=== PATIENT | male | born 1965 | race Caucasian/White ===

== ENCOUNTER 2019-08-07 15:25 | Outpatient (RCR) | payer MEDICARE, SELFPAY | END 2019-08-21 23:59 | disposition home or self-care (01) | LOC: SPT 15:25 | PROVIDERS: Family Provider Family Medicine; PCP Family Medicine; Referring Provider Family Medicine; Visit Provider Family Medicine | DX: R27.9 Unspecified lack of coordination (principal) | CPT/HCPCS: 97110; 97161 ==

== ENCOUNTER 2019-11-13 17:45 | Emergency (ER) | payer MEDICARE, SELFPAY ==
[2019-11-13 17:52] VITALS: BP 147/79; PULSE 94; RESP 18; TEMP 36.6; O2SAT 95; BMI 37.6
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
[2019-11-13] MEDS: naproxen 500 mg Tablet PO (18:44)
[2019-11-13 18:47] VITALS: BP 125/78; PULSE 81; RESP 16; O2SAT 93
== END 2019-11-13 18:55 | disposition home or self-care (01) ==
PROVIDERS: Emergency Provider Emergency Medicine; PCP Family Medicine
DX: S63.502A Unspecified sprain of left wrist, initial encounter (principal); S66.912A Strain of unspecified muscle, fascia and tendon at wrist and hand level, left hand, initial encounter; V19.9XXA Pedal cyclist (driver) (passenger) injured in unspecified traffic accident, initial encounter
CPT/HCPCS: 12345; 73110; 99282; 99283

== ENCOUNTER 2019-11-23 22:32 | Observation (INO) | payer MEDICARE, SELFPAY ==
[2019-11-23 23:00] VITALS: PULSE 90; RESP 20; TEMP 36.7; O2SAT 95; BMI 37.6
[2019-11-24] VITALS (8 sets, daily range): BP systolic 106–171; BP diastolic 73–113; PULSE 69–81; RESP 16–20; TEMP 36.5–36.7; O2SAT 96–99
--- NOTE | 2019-11-24 01:39 | ED_ITS ---
Documented by User: TRIPP Underwood 11/24/19 03:56 HPI - Abdominal Pain General: Chief Complaint: Airway/Esophagus Foreign Body Stated Complaint: food stuck in chest Time Seen by Provider: 11/24/19 01:16 Source: patient Mode of arrival: ambulatory Limitations: no limitations History of Present Illness: HPI narrative: Patient comes in with foreign body sensation in his esophagus. Patient states he was eating ribs at around 5:00 this afternoon and swallowed some but felt it did not go down all the way. Patient reports since then he has every now again has to spit out phlegm. But is unable to swallow. Patient appears well. Patient appears in no acute distress. Patient does have a history of stroke with right-sided deficit. Associated Symptoms: Reports other (Foreign body in esophagus.) Review of Systems General: Reports: 10 or more systems reviewed and unremarkable except in HPI and below GI: Reports: other (Foreign body in esophagus.) PFSH ED PFSH: Medical History Anxiety History of CVA (cerebrovascular accident) Right hemiparesis Hypertension Surgical History History of appendectomy History of arthroscopy of left knee History of facial surgery Nerve surgery on the right side to help me move food out of the right side of my mouth after my stroke History of removal of Port-a-Cath Placement/removal Schwannoma of cranial nerve Craniotomy Status post cholecystectomy Status post insertion of percutaneous endoscopic gastrostomy (PEG) tube /Removal Family History Other Cancer Diabetes Social History Smoking and tobacco status: never smoked Household members: spouse Marital status: Current occupational status: unemployed Physical Exam Const: COMMON NORMALS: no acute distress and patient oriented x3 GENERAL APPEARANCE: cooperative HENMT: COMMON NORMALS: normocephalic and Normal external nose present HEAD & SCALP: normal to inspection and normocephalic NOSE: Normal external nose present MOUTH: Normal oral and palatal mucosa present THROAT: posterior oropharynx normal Eye: GENERAL EYE: appearance normal, both eyes and all related structures Neck/C-Spine: COMMON NORMALS: full ROM Lymph: LYMPHATIC: no lymphadenopathy noted Chest: COMMONS NORMALS: normal inspection of the chest Resp: COMMON NORMALS: normal respiratory effort EFFORT & INSPECTION: Yes able to speak in complete sentences Cardio: COMMON NORMALS: regular rate and regular rhythm RATE: regular rate RHYTHM: regular rhythm GI: COMMON NORMALS: non-tender : COMMON NORMALS: Yes no CVA tenderness BLADDER/KIDNEY EXAM: Yes no CVA tenderness Back/Pelvis: COMMON NORMALS: no CVA tenderness and thoracic and lumbar spine normal to inspection Extremity: COMMON NORMALS: normal to inspection Neuro: COMMON NORMALS: patient oriented x3 and moves all extremities Psych: COMMON NORMALS: mental status grossly normal and cooperative Skin: COMMON NORMALS: no rashes or lesions noted GENERAL SKIN EXAM: no rashes or lesions noted Course ED course: 5, attempted use of nitro sublingual and glucagon without relief of obstruction to esophagus. Chest x-ray noted obstruction in the esophagus as highlighted by barium. Patient appears well. Patient appears no acute distress. Reviewed with Dr. Pedro who will talk with Dr. Magana regarding further treatment. Dr. Pedro assumed care of patient. Wjw Vital Signs: Vital signs: Vital Signs Temperature 97.7 F 11/24/19 09:40 Pulse Rate 81 11/24/19 09:40 Respiratory Rate 16 11/24/19 09:40 Blood Pressure 158/105 11/24/19 09:40 Pulse Oximetry 98 11/24/19 09:40 MDM - Abdominal Pain MDM Narrative: Medical decision making narrative: Patient came in today for complaints of inability to swallow after eating some baby back ribs. Patient appears well. Patient appears in no acute distress. Lungs are clear to auscultation. Skin is warm and dry. Differential diagnosis includes esophageal stricture, esophageal obstruction, aspiration. Chest x-ray noted a obstruction in the esophagus as highlighted by barium. We attempted relaxation of the esophagus with nitro and glucagon without any relief. Discussed with Dr. Pedro who agreed to contact Dr. Magana for surgical intervention. Patient needs surgical intervention to remove obstruction from esophagus. Lab Data: Labs: Lab Results 11/24/19 11/24/19 Range/Units 04:14 04:14 WBC 8.4 (4.0-10.0) 10^3/ uL RBC 4.78 (4.1-5.3) 10^6/u L Hgb 13.5 (11.7-16.6) g/dL Hct 40.3 L (42.0-52.0) % MCV 84.3 (80-94) fL MCH 28.2 (28.0-34.0) pg MCHC 33.5 (30.0-36.0) g/dL RDW 12.8 (12.1-15.1) % Plt Count 206 (130-400) 10^3/c mm MPV 11.6 H (7.4-10.4) fL Neut % (Auto) 62.4 % Lymph % (Auto) 26.2 % [place] % (Auto) 5.6 % Eos % (Auto) 5.1 % Baso % (Auto) 0.6 % Neut # (Auto) 5.2 (1.8-7.7) 10^3/u L Lymph # (Auto) 2.2 (0.8-4.8) 10^3/u L [place] # (Auto) 0.5 (0.2-0.9) 10^3/u L Eos # (Auto) 0.4 (0.0-0.8) 10^3/u L Baso # (Auto) 0.1 (0.0-0.1) 10^3/u L Nucleated RBC % (a uto) 0 % Nucleated RBCs # 0.0 /100WBC Sodium 137 (136-145) mmol/L Potassium 3.6 (3.5-5.1) mmol/L Chloride 99 (98-107) mmol/L Carbon Dioxide 25 (22-29) mmol/L Anion Gap 16.6 (5-19) BUN 13 (6-20) mg/dL Creatinine 1.0 (0.7-1.2) mg/dL GFR Calculation 78.2 L (90-130) mL/min Glucose 119 H (65-115) mg/dL Calculated Osmolal ity 281 L (285-295) mOsm/k g Calcium 9.5 (8.5-10.5) mg/dL Total Bilirubin 0.9 (0.15-1.2) mg/dL AST 17 (0-40) U/L ALT 23 (0-41) U/L Alkaline Phosphata se 67 (40-130) IU/L Total Protein 7.7 (6.6-8.7) g/dL Albumin 4.9 (3.5-5.2) g/dL Globulin 2.8 (1.3-4.6) g/dL Discharge Plan Discharge Patient Disposition: Admitted As Inpatient Admit Provider: Alonso Magana Condition: Stable Discharge Orders: Discharge Order (Routine); Ordered 11/24/19 Ordered By: Alonso Magana Referrals: Marsha Grover MD [Primary Care Provider] - (Need a 1 week follow up appointment from hospital with Marsha. Need this call to his home. Faxed information to clinic) Discharge Diet: Advance as tolerated Discharge Activity: Increase activity as tolerated Patient Instructions: Esophageal Spasm (GEN) Additional Instructions: Follow-up with your primary care physician as needed. Discharge Date/Time: 11/24/19 06:53 Coding Level of Care Code ED Dinkey Motor Operator for Chg Fwd Exam Comprehensive Documented by User: Jose Armando Pedro DO 11/25/19 06:07 HPI - Abdominal Pain General: Chief Complaint: Airway/Esophagus Foreign Body Stated Complaint: food stuck in chest Time Seen by Provider: 11/24/19 01:16 [facility] ED PFSH: Medical History Anxiety History of CVA (cerebrovascular accident) Right hemiparesis Hypertension Surgical History History of appendectomy History of arthroscopy of left knee History of facial surgery Nerve surgery on the right side to help me move food out of the right side of my mouth after my stroke History of removal of Port-a-Cath Placement/removal Schwannoma of cranial nerve Craniotomy Status post cholecystectomy Status post insertion of percutaneous endoscopic gastrostomy (PEG) tube /Removal Family History Other Cancer Diabetes Social History Smoking and tobacco status: never smoked Household members: spouse Marital status: Current occupational status: unemployed Course Consultations: Consultation #1: miriam Vital Signs: Vital signs: Vital Signs Temperature 97.7 F 11/24/19 09:40 Pulse Rate 81 11/24/19 09:40 Respiratory Rate 16 11/24/19 09:40 Blood Pressure 158/105 11/24/19 09:40 Pulse Oximetry 98 11/24/19 09:40 MDM - Abdominal Pain MDM Narrative: Medical decision making narrative: This patient was originally seen by TRIPP Nichols. I have seen the patient as well. He has a foreign body sensation in his esophagus. On a modified barium swallow study, and obstruction is present. Nitroglycerin has been tried as well as glucagon. This was unsuccessful. We contacted surgery, and they are willing to accept as an outpatient in a bed to take to the GI Lab later this morning for EGD. Lab Data: Labs: Lab Results 11/24/19 11/24/19 Range/Units 04:14 04:14 WBC 8.4 (4.0-10.0) 10^3/ uL RBC 4.78 (4.1-5.3) 10^6/u L Hgb 13.5 (11.7-16.6) g/dL Hct 40.3 L (42.0-52.0) % MCV 84.3 (80-94) fL MCH 28.2 (28.0-34.0) pg MCHC 33.5 (30.0-36.0) g/dL RDW 12.8 (12.1-15.1) % Plt Count 206 (130-400) 10^3/c mm MPV 11.6 H (7.4-10.4) fL Neut % (Auto) 62.4 % Lymph % (Auto) 26.2 % [place] % (Auto) 5.6 % Eos % (Auto) 5.1 % Baso % (Auto) 0.6 % Neut # (Auto) 5.2 (1.8-7.7) 10^3/u L Lymph # (Auto) 2.2 (0.8-4.8) 10^3/u L [place] # (Auto) 0.5 (0.2-0.9) 10^3/u L Eos # (Auto) 0.4 (0.0-0.8) 10^3/u L Baso # (Auto) 0.1 (0.0-0.1) 10^3/u L Nucleated RBC % (a uto) 0 % Nucleated RBCs # 0.0 /100WBC Sodium 137 (136-145) mmol/L Potassium 3.6 (3.5-5.1) mmol/L Chloride 99 (98-107) mmol/L Carbon Dioxide 25 (22-29) mmol/L Anion Gap 16.6 (5-19) BUN 13 (6-20) mg/dL Creatinine 1.0 (0.7-1.2) mg/dL GFR Calculation 78.2 L (90-130) mL/min Glucose 119 H (65-115) mg/dL Calculated Osmolal ity 281 L (285-295) mOsm/k g Calcium 9.5 (8.5-10.5) mg/dL Total Bilirubin 0.9 (0.15-1.2) mg/dL AST 17 (0-40) U/L ALT 23 (0-41) U/L Alkaline Phosphata se 67 (40-130) IU/L Total Protein 7.7 (6.6-8.7) g/dL Albumin 4.9 (3.5-5.2) g/dL Globulin 2.8 (1.3-4.6) g/dL Discharge Plan Discharge Patient Disposition: Admitted As Inpatient Admit Provider: Alonso Magana Condition: Stable Discharge Orders: Discharge Order (Routine); Ordered 11/24/19 Ordered By: Alonso Magana Referrals: Marsha Grover MD [Primary Care Provider] - (Need a 1 week follow up appointment from hospital with Marsha. Need this call to his home. Faxed information to clinic) Discharge Diet: Advance as tolerated Discharge Activity: Increase activity as tolerated Patient Instructions: Esophageal Spasm (GEN) Additional Instructions: Follow-up with your primary care physician as needed. Discharge Date/Time: 11/24/19 06:53 Coding Level of Care Code ED Dinkey Motor Operator for Chg Fwd Exam Comprehensive
--- NOTE | 2019-11-24 01:40 | XRR_ITS ---
PROCEDURE INFORMATION: Exam: XR Chest, 2 Views Exam date and time: 11/24/2019 3:14 AM Age: 54 years old Clinical indication: Other: Food bolus in chest/esphagus TECHNIQUE: Imaging protocol: XR of the chest Views: 2 views. COMPARISON: CR Chest 1 [place] [id number] 11/13/2017 1:17 PM FINDINGS: Lungs: Lungs are clear. Pleural space: There is no pleural effusion or pneumothorax. Heart/Mediastinum: The upper esophagus is dilated and contrast filled. There is an irregular filling defect at the distal margin of the contrast column. Cardiomediastinal contours are unremarkable. Bones/joints: Bones are unremarkable. XR/XR chest 2V* [id number] IMPRESSION: Mid esophageal obstruction. Findings may be due to food bolus, neoplastic mass, and or esophageal stricture.
[2019-11-24] MEDS: nitroglycerin 0.4 mg sublingual Tablet SUBLINGUAL (01:54)
[2019-11-24] MEDS: barium sulfate 450 mL Oral Susp PO (03:23)
--- NOTE | 2019-11-24 03:54 | ECG_ITS ---
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 Measurements Intervals Spring Rate: 72 P: 33 OR: 186 QRS: 23 QRSD: 108 T: 6 QT: 374 QTc: 410 Interpretive Statements SINUS RHYTHM Compared to ECG 11/16/2014 16:46:55 Myocardial infarct finding no longer present Electronically Signed On 11-24-2019 13:53:28 CDT by Chava Bernal M.D. [id number]
[2019-11-24 06:07] LABS: Basophils # 0.1 10^3/uL (0.0-0.1); Basophils % 0.6 %; Eosinophils # 0.4 10^3/uL (0.0-0.8); Eosinophils % 5.1 %; Hematocrit 40.3 % (42.0-52.0); Hemoglobin 13.5 g/dL (11.7-16.6); Lymphocytes # 2.2 10^3/uL (0.8-4.8); Lymphocytes % 26.2 %; Mean Corpuscular HGB Conc 33.5 g/dL (30.0-36.0); Mean Corpuscular Hemoglobin 28.2 pg (28.0-34.0); Mean Corpuscular Volume 84.3 fL (80-94); Mean Platelet Volume 11.6 fL (7.4-10.4); Monocytes # 0.5 10^3/uL (0.2-0.9); Monocytes % 5.6 %; Neutrophils # 5.2 10^3/uL (1.8-7.7); Neutrophils % 62.4 %; Nucleated Red Blood Cells % 0 %; Platelet Count 206 10^3/cmm (130-400); Red Blood Count 4.78 10^6/uL (4.1-5.3); Red Cell Distribution Width 12.8 % (12.1-15.1); White Blood Count 8.4 10^3/uL (4.0-10.0)
[2019-11-24 06:25] LABS: Alanine Aminotransferase 23 U/L (0-41); Albumin Level 4.9 g/dL (3.5-5.2); Alkaline Phosphatase 67 IU/L (40-130); Anion Gap 16.6 (5-19); Aspartate Amino Transferase 17 U/L (0-40); Blood Urea Nitrogen 13 mg/dL (6-20); Calcium 9.5 mg/dL (8.5-10.5); Carbon Dioxide 25 mmol/L (22-29); Chloride 99 mmol/L (98-107); Globulin 2.8 g/dL (1.3-4.6); Glomerular Filtration Rate 78.2 mL/min (90-130); Glucose 119 mg/dL (65-115); Osmolality Calculated 281 mOsm/kg (285-295); Potassium 3.6 mmol/L (3.5-5.1); Sodium 137 mmol/L (136-145); Total Bilirubin 0.9 mg/dL (0.15-1.2); Total Protein 7.7 g/dL (6.6-8.7)
--- NOTE | 2019-11-24 07:20 | PM.HP ---
Providers/Chief Complaint Admitting Physician: Alonso Magana MD Primary Care Provider: Marsha Grover MD Chief Complaint: food stuck in chest History of Present Illness Walter Cherry is a 54 year old male who was eating some ribs yesterday around 5 PM. He says that he felt like one bite of the meat did not go down all the way. He has been able to handle secretions for the most part, but came into the emergency department and no medical modalities resulted in improvement. He was placed in an outpatient bed with plans for endoscopy. The patient says he has been asleep for a couple of hours and it is difficult for him to tell if the meat is still in his esophagus or not. He certainly is in no distress. This has never happened to him before, although he has had a stroke in the past and feels like sometimes he has to swallow hard to get food down. The patient has no ongoing history of GERD symptoms or a history of PUD, etc. He currently denies any abdominal pain. Review of Systems General: Reports: 10 or more systems reviewed and unremarkable except in HPI and below Neuro: Reports: other (Right-sided weakness including face following CVA) Medications/Allergies Home Medications Medication Instructions Recorded Confirmed Last Taken Type atorvastatin 80 mg tablet 80 mg PO DAILY 10/09/19 11/13/19 Unknown History cholestyramine (with sugar) 4 gram 4 g PO BID 10/09/19 11/13/19 Unknown History powder for susp in a packet fenofibrate micronized 200 mg 200 mg PO DAILY 10/09/19 11/13/19 Unknown History capsule lisinopril 10 mg tablet 10 mg PO DAILY 10/09/19 11/13/19 Unknown History sertraline 100 mg tablet 200 mg PO DAILY 10/09/19 11/24/19 11/23/19 20:00 History mirtazapine 30 mg PO BEDTIME 11/13/19 11/13/19 Unknown History naproxen [Naprosyn] 500 mg PO BID PRN #20 tab 11/13/19 Unknown Rx omega-3 fatty acids-fish oil [Fish 1 cap PO DAILY 11/13/19 11/13/19 Unknown History Oil] Allergies Allergy/AdvReac Type Severity Reaction Status Date / Time No Known Allergies Allergy Verified 11/13/19 18:18 PFSH Acute PFSH: Medical History (Updated 11/24/19 @ 07:25 by Alonso Magana MD) Anxiety History of CVA (cerebrovascular accident) Right hemiparesis Hypertension Surgical History (Updated 11/24/19 @ 07:26 by Alonso Magana MD) History of appendectomy History of arthroscopy of left knee History of facial surgery Nerve surgery on the right side to help me move food out of the right side of my mouth after my stroke History of removal of Port-a-Cath Placement/removal Schwannoma of cranial nerve Craniotomy Status post cholecystectomy Status post insertion of percutaneous endoscopic gastrostomy (PEG) tube /Removal Family History Other Cancer Diabetes Social History Smoking and tobacco status: never smoked Household members: spouse Marital status: Current occupational status: unemployed Vitals/I&O/Wt Last Vital Signs Temp 97.8 F 11/24/19 06:33 Pulse 72 11/24/19 06:33 Resp 16 11/24/19 06:33 BP 106/73 11/24/19 06:33 Pulse Ox 99 11/24/19 06:33 Weight last 48 hrs Weight 270 lb Physical Exam Narrative: EXAM NARRATIVE: The patient was encountered in his hospital room. He does not appear to be in any distress. The patient has obvious evidence of some parapsoas on the right side of his face. The pupils seem equal. No carotid bruits are heard. The lungs are clear anteriorly. The heart is regular. The abdomen is moderately obese but is completely soft and nontender. The extremities reveal no edema. Neurologically the patient can move all limbs to command but has some general weakness on the right side. Data : 11/24/19 04:14 11/24/19 04:14 A&P Assessment and plan (1) Esophageal obstruction due to food impaction: The patient cannot tell for certain whether or not the food is still in his esophagus or not. I suggested to him that we proceed with endoscopy to try to remove anything that is still in place. He is agreeable. Status: Acute Attestations Medical Necessity Statement*: The patient will be kept in outpatient status for now. Coding Level of Care Code Acute System Development Engineer for [facility] Brayan Diagnoses Esophageal obstruction due to food impaction K22.2; T18.128A
--- NOTE | 2019-11-24 07:54 | P.ANESASSM_ITS ---
Pre-Anesthetic Assessment Pre-Anesthetic Assessment: Height/Weight: Height 1.8 m Weight 122.47 kg Temp Pulse Resp BP Pulse Ox 98.1 F 69 20 H 133/86 96 11/24/19 07:51 11/24/19 07:51 11/24/19 07:51 11/24/19 07:51 11/24/19 07:51 Proposed Procedure: Operation Date: 11/24/19 08:30 Proposed Procedures p EGD(Not Applicable) - Alonso Magana MD Last intake: Intake Last Liquid Date 11/23/19 Last Liquid Time 20:00 Last Solid Date 11/23/19 Last Solid Time 20:00 Social: Social History: No alcohol and No tobacco Exam: Pre-Anes Outpt Exam: alert, oriented x 3, clear to auscultation bilaterally and regular rate & rhythm Airway: Submandibular: WNL Cervical ROM: WNL MP: 2 Dentition: Other (poor dentation) History/ROS: No significant history except as noted Pulmonary: Pulmonary: None reported CV/HEM: CV/HEM: HTN : : None reported Hepatic: Hepatic: None reported GI: GI: None reported Metabolic: Metabolic: Hyperlipidemia and Morbid obesity Musc/skel: Musc/skel: Weakness (right side) Neuropsych: Neuropsych: Anxiety and CVA (Right side weakness) Anesthetic Plan: ASA status: 3 Anesthesia: Anesthesia Evaluation and General Risk of > 500 ml blood loss (7ml/kg in children): No Meds/Allergies Current Medications: Current Medications Generic Name Dose Route Start Last Admin Trade Name Freq PRN Reason Stop Dose Admin Nitroglycerin 0.4 mg 11/24/19 01:39 11/24/19 01:54 Nitrostat SUBLINGUAL 0.4 mg Q5M PRN Administration CHEST PAIN PFSH Anesthesia PFSH: Medical History Anxiety History of CVA (cerebrovascular accident) Right hemiparesis Hypertension Surgical History History of appendectomy History of arthroscopy of left knee History of facial surgery Nerve surgery on the right side to help me move food out of the right side of my mouth after my stroke History of removal of Port-a-Cath Placement/removal Schwannoma of cranial nerve Craniotomy Status post cholecystectomy Status post insertion of percutaneous endoscopic gastrostomy (PEG) tube /Removal Family History Other Cancer Diabetes Social History Smoking and tobacco status: never smoked Household members: spouse Marital status: Current occupational status: unemployed Data Anesthesia CBC & Chem 7: 11/24/19 04:14 11/24/19 04:14 Other Labs: Laboratory Results - last 48 hr 11/24/19 11/24/19 04:14 04:14 WBC 8.4 RBC 4.78 Hgb 13.5 Hct 40.3 L MCV 84.3 MCH 28.2 MCHC 33.5 RDW 12.8 Plt Count 206 MPV 11.6 H Neut % (Auto) 62.4 Lymph % (Auto) 26.2 [place] % (Auto) 5.6 Eos % (Auto) 5.1 Baso % (Auto) 0.6 Neut # (Auto) 5.2 Lymph # (Auto) 2.2 [place] # (Auto) 0.5 Eos # (Auto) 0.4 Baso # (Auto) 0.1 Nucleated RBC % (auto) 0 Nucleated RBCs # 0.0 Sodium 137 Potassium 3.6 Chloride 99 Carbon Dioxide 25 Anion Gap 16.6 BUN 13 Creatinine 1.0 GFR Calculation 78.2 L Glucose 119 H Calculated Osmolality 281 L Calcium 9.5 Total Bilirubin 0.9 AST 17 ALT 23 Alkaline Phosphatase 67 Total Protein 7.7 Albumin 4.9 Globulin 2.8 Cardiac Studies: No Data to Display
[2019-11-24] MEDS: lactated ringers 1,000 ML 100 ML IV (07:55)
--- NOTE | 2019-11-24 08:06 | PC.NURSE ---
surgery pt went down to gi lab
--- NOTE | 2019-11-24 12:59 | PC.CHAP ---
Pastoral Care Encounter/Spiritual Assessment Type of Contact [] Declined lockstitch machine operator visit [] Patient/Family/Request visit [] Outpatient visit [] Follow-up visit [] Physician referral [] Code/Alert [X] Routine visit [] Staff referral [] Actively dying [] Patient sleeping [] Family support [] [] Out of room [] Palliative care [] [] Receiving care in room [] Pre-surgical visit [] Trauma [] Long length of stay [] ICU visit [] Other: Relational/Emotional Strength [] Patient feels connected with others/family/visitors/staff [] Distress [] Loneliness/isolation [] Abandonment Spirituality of Patient [] Person of Shawna [] Attends Congregation of their Shawna [] Believes in Prayer [] Reads Bible or Oriental Orthodox materials [] There are Spiritual issues to be addressed Territory Sales Representative Interventions [] Prayer [] Active listening [] Non-anxious presence [] Spiritual/emotional support [] Crisis/trauma care [] Spiritual counseling [] Bereavement support [] Provided bereavement packet [] Provided Bible/devotional materials [] Provided toy/stuffed animal, coloring book to patient or family member [] Provided Communion [] Anointing/[place] [] Salvation [] Completed spiritual assessment [] Other: Impact on Illness or Injury [] Angry [] Fearful [] Anxious [] Often cries [] Exhaustion [] Unable to work [] Unable to attend hindu [] Unable to walk/stand [] Unable to read [] Unable to drive [] Unable to eat/drink [] Unable to sleep [] Unable to be with family [] Patient intubated [] Other: Summary Time spent with patient
== END 2019-11-24 12:40 | disposition home or self-care (01) ==
LOC: ER 11-24 05:59 → MEDSURG 11-24 08:57
PROVIDERS: Admitting Provider Surgery; Emergency Provider Nurse Practitioner Family; PCP Family Medicine; Visit Provider Surgery
PROC: 0DJ08ZZ Inspection of Upper Intestinal Tract, Via Natural or Artificial Opening Endoscopic (ICD-10-PCS; CPT 43235; principal; 2019-11-24 08:30)
DX: T18.128A Food in esophagus causing other injury, initial encounter (principal); K22.2 Esophageal obstruction; K21.9 Gastro-esophageal reflux disease without esophagitis; Z87.11 Personal history of peptic ulcer disease; Z79.1 Long term (current) use of non-steroidal anti-inflammatories (NSAID); F41.9 Anxiety disorder, unspecified; I10 Essential (primary) hypertension; E78.5 Hyperlipidemia, unspecified; E66.01 Morbid (severe) obesity due to excess calories; Z68.37 Body mass index [BMI] 37.0-37.9, adult; I69.951 Hemiplegia and hemiparesis following unspecified cerebrovascular disease affecting right dominant side
CPT/HCPCS: 12345; 43247; 71046; 80053; 85025; 93005; 96374; 99283; 99285; G0378; J1610; J2001; J2704

== ENCOUNTER 2020-01-01 11:21 | Outpatient (CLI) | payer SELFPAY ==
--- NOTE | 2020-01-01 11:26 | FL_ITS ---
WS: [id number] MODIFIED BARIUM SWALLOW TECHNIQUE: Modified barium swallow with speech therapy using multiple consistencies. FLUOROSCOPY TIME: 1.4 minutes. CLINICAL INFORMATION: Other dysphagia COMPARISON: None. FINDINGS: Multiple consistencies utilized. No evidence of reyes aspiration or penetration. Normal oropharyngeal phase. Moderate esophageal dysmotility with delayed emptying partially visualized. Recommend further evaluation with esophagram. No difficulties with barium tablet. FL/FL barium swallow modifd [id number] IMPRESSION: 1. No evidence of aspiration/penetration. 2. Moderate esophageal dysmotility with delayed emptying partially visualized. Recommend further evaluation with esophagram.
== END 2020-01-01 11:22 | disposition home or self-care (01) ==
LOC: RAD 11:23
PROVIDERS: Visit Provider Family Medicine
DX: R13.10 Dysphagia, unspecified (principal)
CPT/HCPCS: 74230; 92611

== ENCOUNTER 2020-01-21 07:26 | Outpatient (CLI) | payer SELFPAY ==
--- NOTE | 2020-01-21 07:36 | FL_ITS ---
WS: [id number] ESOPHAGRAM WITH FLUOROSCOPY HISTORY: Dysphagia and dysmotility. COMPARISON: None available. FLUOROSCOPY TIME: 1.8 minutes. Welding Specialist radiograph: Normal lateral C-spine. Esophagus and swallowing function: Patient swallowed the barium mixture without difficulty. There is very minimal narrowing of the distal esophagus and very mild tertiary contractions and dysmotility of the mid to distal esophagus. Barium tablet was minimally delayed at the distal esophagus. No reflux. Gastroesophageal reflux: None. Hiatal hernia: Small intermittent hiatal hernia. FL/FL barium swallow 38626 IMPRESSION: 1. Very minimal esophageal dysmotility. 2. Minimal narrowing of the distal esophagus causing slight delay in transit o f the barium tablet. No significant stricture at this time. 3. Small reducible hiatal hernia.
== END 2020-01-21 07:27 | disposition home or self-care (01) ==
PROVIDERS: Visit Provider Nurse Practitioner Family
DX: R13.10 Dysphagia, unspecified (principal); K44.9 Diaphragmatic hernia without obstruction or gangrene
CPT/HCPCS: 74220

== ENCOUNTER 2020-08-27 06:00 | Outpatient (RCR) | payer MEDICARE, SELFPAY | END 2020-09-19 23:59 | disposition home or self-care (01) | LOC: SPS 06:00 | PROVIDERS: PCP Nurse Practitioner Family; Referring Provider Nurse Practitioner Family; Visit Provider Nurse Practitioner Family | DX: R13.10 Dysphagia, unspecified (principal); R27.9 Unspecified lack of coordination; I63.9 Cerebral infarction, unspecified | CPT/HCPCS: 92610; 97161 ==

== ENCOUNTER 2020-09-04 11:17 | Outpatient (CLI) | payer MEDICARE, SELFPAY ==
--- NOTE | 2020-09-04 11:25 | FL_ITS ---
WS: [id number] Modified barium swallow, 09/04/2020 Clinical Data: Other dysphagia Comparison: None. Fluoroscopy time: 1.3 minutes. Findings: The patient initiated swallowing without hesitation. There was good bolus movement in the oral and ph aryngeal phases. There is no aspiration or penetration. No vallecular pooling or piriform sinus pooli ng occurred. The patient swallowed a barium tablet without hesitation and it moved into the distal es ophagus where there was slight delay in esophageal motility. FL/FL barium swallow modifd [id number] Impression: 1. Normal modified barium swallow. 2. Delay in distal ESOPHAGEAL motility.
== END 2020-09-04 11:18 | disposition home or self-care (01) ==
LOC: RAD 11:23
PROVIDERS: PCP Nurse Practitioner Family; Visit Provider Nurse Practitioner Family
DX: R13.10 Dysphagia, unspecified (principal)
CPT/HCPCS: 74230; 92611

== ENCOUNTER 2022-03-02 19:55 | Emergency (ER) | payer MEDICARE, SELFPAY ==
[2022-03-02 20:22] VITALS: BP 157/100; PULSE 90; RESP 16; TEMP 37.1; O2SAT 95; BMI 36.2
--- NOTE | 2022-03-02 23:35 | W.ED.GENADLT ---
Documented by User: TRIPP Underwood 03/03/22 00:51 HPI - General Adult General: Chief complaint: General Medical Stated complaint: Something Stuck in Throat Time Seen by Provider: 03/02/22 23:31 History of Present Illness: 56-year-old male patient comes in tonight with complaints of a food bolus. Patient reports that about 1900 this evening he was eating a broad source and since then he has had a sensation that it is lodged in his mid sternum. Patient reports trying to drink but has has regurgitated all he drank. Patient has had a history of a prior episode in the past. Patient is managing secretions at this time. Patient has had a history of a CVA and has right side facial drooping. Associated symptoms: Deny chest pain, dyspnea or rash Review of Systems Const: Denies: fever(s) Card: Denies: chest pain Resp: Denies: dyspnea GI: Reports: other (Food bolus) Musc: Denies: neck pain Skin/Breast: Denies: rash PFSH ED PFSH: Medical History (Updated 03/03/22 @ 07:01 by Crispin Lainez DO) Anxiety History of CVA (cerebrovascular accident) Right hemiparesis Hypertension Surgical History History of appendectomy History of arthroscopy of left knee History of facial surgery Nerve surgery on the right side to help me move food out of the right side of my mouth after my stroke History of removal of Port-a-Cath Placement/removal Schwannoma of cranial nerve Craniotomy Status post cholecystectomy Status post insertion of percutaneous endoscopic gastrostomy (PEG) tube /Removal Family History Other Cancer Diabetes Social History Smoking and tobacco status: never smoked Household members: spouse Marital status: Current occupational status: unemployed Physical Exam Const: COMMON NORMALS: alert HENMT: COMMON NORMALS: normocephalic HEAD & SCALP: normocephalic MOUTH: lip abnormal (Right side facial drooping); no drooling Neck/C-Spine: COMMON NORMALS: full ROM Resp: COMMON NORMALS: normal respiratory effort and clear to auscultation bilaterally AUSCULTATION: clear to auscultation bilaterally Cardio: COMMON NORMALS: regular rate and regular rhythm RATE: regular rate RHYTHM: regular rhythm GI: COMMON NORMALS: Soft to palpation and non-tender PALPATION: Yes Soft to palpation Extremity: COMMON NORMALS: normal to inspection Neuro: SENSORIUM/ORIENTATION: Yes alert Skin: COMMON NORMALS: turgor normal GENERAL SKIN EXAM: turgor normal Course ED course: 12:30 AM, attempted disimpaction of food bolus with glucagon 1 mg IV and 1 nitro tablet without success. Reviewed with Dr. Hu who agreed to plan to contact surgeon for plan for GI Lab in the morning. Discussed patient with Dr. Lainez who agreed to take patient for endoscopy in the morning at 630. Patient will be maintained on IV fluids. Vital Signs: Vital signs: Vital Signs Temperature 97.4 F L 03/03/22 08:08 Pulse Rate 84 03/03/22 08:08 Respiratory Rate 18 03/03/22 08:08 Blood Pressure 145/90 03/03/22 08:08 Pulse Oximetry 95 03/03/22 08:08 Oxygen Delivery Me thod 03/03/22 08:08 Oxygen Flow Rate 3 03/03/22 07:54 [facility] - General Adult Medical Decision Making Patient came in today due to inability to swallow fluids completely down. Patient reports food impaction with a piece of meat. Patient is in no acute distress. Patient is having to spit out mouth secretions. Patient is managing secretions well. On exam patient is alert and oriented. Lungs are clear to auscultation. Abdomen soft nontender. Vital signs are normal except for elevation of blood pressure. Differential diagnosis includes but not limited to food bolus impaction, aspiration, hiatal hernia. Attempted disimpaction with glucagon, nitro, and Coke without any improvement or relief of symptoms. Consulted Dr. Lainez, surgeon on-call agreed plan to do endoscopy to remove food impaction. Lab Data Radiology Impressions Chest X-Ray 03/02/22 23:39 IMPRESSION: No acute findings. Discharge Plan Discharge Patient Disposition: Home Condition: Stable Prescriptions: No Action sertraline 100 mg tablet 200 mg PO DAILY fenofibrate micronized 200 mg capsule 200 mg PO DAILY atorvastatin 80 mg tablet 80 mg PO DAILY cholestyramine (with sugar) 4 gram powder in packet 4 g PO BID lisinopril 10 mg tablet 10 mg PO DAILY naproxen [Naprosyn] 500 mg tablet 500 mg PO BID PRN (Reason: pain) Qty: 20 0RF mirtazapine 30 mg Tablet 30 mg PO BEDTIME Fish Oil 300-500 mg Capsule 1 cap PO DAILY Discharge Orders: Discharge ED (Routine); Ordered 03/03/22 Ordered By: Crispin Lainez Referrals: Crispin Lainez DO [Physician] - 2 weeks (DR. SPENCER OFFICE WILL CALL YOU TO SCHEDULE A 2 WEEK FOLLOW-UP APPOINTMENT) Daphnie Franco FNP [Primary Care Provider] - Discharge Diet: Advance as tolerated Discharge Activity: Resume usual activity Patient Instructions: GI Discharge Instructions, Opioid Safety, Pain Management Stand Alone Forms: Against Medical Advice Sign Out Sign Out Data: Patient Sign Out occurred on 03/03/22 at 00:54. Patient's care was discussed, and care was transferred from to Daniel Hu MD. Coding Level of Care Code ED Personnel Clerks Supervisor for Chg Fwd Exam Comprehensive Documented by User: Daniel Hu MD 03/14/22 16:53 HPI - General Adult General: Chief complaint: General Medical Stated complaint: Something Stuck in Throat Time Seen by Provider: 03/02/22 23:31 [facility] PFSH: Medical History (Updated 03/03/22 @ 07:01 by Crispin Lainez DO) Anxiety History of CVA (cerebrovascular accident) Right hemiparesis Hypertension Surgical History History of appendectomy History of arthroscopy of left knee History of facial surgery Nerve surgery on the right side to help me move food out of the right side of my mouth after my stroke History of removal of Port-a-Cath Placement/removal Schwannoma of cranial nerve Craniotomy Status post cholecystectomy Status post insertion of percutaneous endoscopic gastrostomy (PEG) tube /Removal Family History Other Cancer Diabetes Social History Smoking and tobacco status: never smoked Household members: spouse Marital status: Current occupational status: unemployed Course Vital Signs: Vital signs: Vital Signs Temperature 97.4 F L 03/03/22 08:08 Pulse Rate 84 03/03/22 08:08 Respiratory Rate 18 03/03/22 08:08 Blood Pressure 145/90 03/03/22 08:08 Pulse Oximetry 95 03/03/22 08:08 Oxygen Delivery Me thod 03/03/22 08:08 Oxygen Flow Rate 3 03/03/22 07:54 MDM - General Adult Medical Decision Making Patient came in today due to inability to swallow fluids completely down. Patient reports food impaction with a piece of meat. Patient is in no acute distress. Patient is having to spit out mouth secretions. Patient is managing secretions well. On exam patient is alert and oriented. Lungs are clear to auscultation. Abdomen soft nontender. Vital signs are normal except for elevation of blood pressure. Differential diagnosis includes but not limited to food bolus impaction, aspiration, hiatal hernia. Attempted disimpaction with glucagon, nitro, and Coke without any improvement or relief of symptoms. Consulted Dr. Lainez, surgeon on-call agreed plan to do endoscopy to remove food impaction. I discussed this case with and I reviewed this documentation by TRIPP Priest. Daniel Hu MD Emergency Medicine Lab Data Radiology Impressions Chest X-Ray 03/02/22 23:39 IMPRESSION: No acute findings. Discharge Plan Discharge Patient Disposition: Home Condition: Stable Prescriptions: No Action sertraline 100 mg tablet 200 mg PO DAILY fenofibrate micronized 200 mg capsule 200 mg PO DAILY atorvastatin 80 mg tablet 80 mg PO DAILY cholestyramine (with sugar) 4 gram powder in packet 4 g PO BID lisinopril 10 mg tablet 10 mg PO DAILY naproxen [Naprosyn] 500 mg tablet 500 mg PO BID PRN (Reason: pain) Qty: 20 0RF mirtazapine 30 mg Tablet 30 mg PO BEDTIME Fish Oil 300-500 mg Capsule 1 cap PO DAILY Discharge Orders: Discharge ED (Routine); Ordered 03/03/22 Ordered By: Crispin Lainez Referrals: Crispin Lainez DO [Physician] - 2 weeks (DR. SPENCER OFFICE WILL CALL YOU TO SCHEDULE A 2 WEEK FOLLOW-UP APPOINTMENT) Daphnie Franco FNP [Primary Care Provider] - Discharge Diet: Advance as tolerated Discharge Activity: Resume usual activity Patient Instructions: GI Discharge Instructions, Opioid Safety, Pain Management Stand Alone Forms: Against Medical Advice Sign Out Sign Out Data: Patient Sign Out occurred on 03/03/22 at 00:54. Patient's care was discussed, and care was transferred from to Daniel Hu MD. Coding Level of Care Code ED Personnel Clerks Supervisor for g Fwd Exam Comprehensive
--- NOTE | 2022-03-02 23:39 | XRR_ITS ---
PROCEDURE INFORMATION: Exam: XR Chest Exam date and time: 03/02/2022 11:59 PM Age: 56 years old Clinical indication: Other: Esophageal obstruction; Patient HX: Patient was eating a bratwurst and feels like a piece of it is stuck in esophagus. Unable to keep down fluids. ; Additional info: Food bolus TECHNIQUE: Imaging protocol: Radiologic exam of the chest. Views: 2 views. COMPARISON: CR XR chest 2V* [id number] 11/24/2019 2:12 AM FINDINGS: Lungs: There is no evidence of focal pulmonary consolidation.There is incomplete lung expansion and crowding of the vascular markings. Pleural spaces: No pleural effusion or pneumothorax. Heart/Mediastinum: The heart and mediastinum are normal in size. Bones/joints: Unremarkable. XR/XR chest 2V* [id number] IMPRESSION: No acute findings.
[2022-03-02] MEDS: nitroglycerin 0.4 mg sublingual Tablet SUBLINGUAL (23:46)
[2022-03-03] VITALS (13 sets, daily range): BP systolic 120–169; BP diastolic 72–105; PULSE 67–96; RESP 16–18; TEMP 36.1–36.3; O2SAT 90–96; BMI 36.9
[2022-03-03] MEDS: sodium chloride 0.9% 1,000 ML 100 ML IV (01:03)
[2022-03-03] MEDS: sodium chloride 0.9% 1,000 ML 30 ML IV ×3 (06:43→06:53)
--- NOTE | 2022-03-03 06:50 | P.ANESASSM_ITS ---
Pre-Anesthetic Assessment Height/Weight: Height 1.8 m Weight 120.202 kg Temp Pulse Resp BP Pulse Ox O2 Del Method 97.4 F L 87 18 169/100 96 03/03/22 06:26 03/03/22 06:26 03/03/22 06:26 03/03/22 06:26 03/03/22 06:26 03/03/22 06:31 Preop Diagnosis: foreign body Operation Date: 03/03/22 06:30 Proposed Procedures p EGD with possible foreign body removal(Not Applicable) - Crispin Lainez DO Familial anesthetic complications: none Was Beta Valentin taken within 24 hours: N/A Was Clonidine taken within 24 hours: N/A Last intake: Intake Last Liquid Date 03/02/22 Last Liquid Time 19:30 Last Solid Date 03/02/22 Last Solid Time 19:30 Social No alcohol and No tobacco Exam alert, oriented x 3, clear to auscultation bilaterally and regular rate & rhythm Airway Submandibular: within normal limits Cervical ROM: within normal limits Mallampati: Class II Dentition: full Pulmonary None reported CV/HEM Hypertension None reported Hepatic None reported GI None reported Metabolic Hyperlipidemia and Morbid Ob[place] [facility] [place] None reported Neuropsych stroke 8 years ago weakness on right side of body and face Anesthetic Plan ASA status: 3 Anesthesia: General Risk of > 500 ml blood loss (7ml/kg in children): No Medications/Allergies Home Medications Medication Instructions Recorded Confirmed Last Taken Type atorvastatin 80 mg tablet 80 mg PO DAILY 10/09/19 03/03/22 Unknown History cholestyramine (with sugar) 4 gram 4 g PO BID 10/09/19 03/03/22 Unknown History powder for susp in a packet fenofibrate micronized 200 mg 200 mg PO DAILY 10/09/19 03/03/22 Unknown History capsule lisinopril 10 mg tablet 10 mg PO DAILY 10/09/19 03/03/22 Unknown History sertraline 100 mg tablet 200 mg PO DAILY 10/09/19 03/03/22 11/23/19 20:00 History mirtazapine 30 mg tablet 30 mg PO BEDTIME 11/13/19 03/03/22 Unknown History naproxen 500 mg tablet (Naprosyn) 500 mg PO BID PRN pain #20 tabs 11/13/19 03/03/22 Unknown Rx omega-3 fatty acids-fish oil 300 1 cap PO DAILY 11/13/19 03/03/22 Unknown History mg-500 mg capsule (Fish Oil) Allergies Allergy/AdvReac Type Severity Reaction Status Date / Time No Known Allergies Allergy Verified 11/13/19 18:18 Current Medications Generic Name Dose Route Start Last Admin Trade Name Freq PRN Reason Stop Dose Admin Sodium Chloride 1,000 mls @ 100 mls/hr 03/03/22 00:45 03/03/22 01:03 Sodium Chloride 0.9% IV 100 mls/hr .Q10H JUAN LUIS Administration Sodium Chloride 1,000 mls @ 30 mls/hr 03/03/22 06:30 03/03/22 06:43 Sodium Chloride 0.9% IV 30 mls/hr .Q24H JUAN LUIS Administration PFSH Anesthesia Medical History (Updated 11/25/19 @ 00:00 by ) Anxiety History of CVA (cerebrovascular accident) Right hemiparesis Hypertension Surgical History History of appendectomy History of arthroscopy of left knee History of facial surgery Nerve surgery on the right side to help me move food out of the right side of my mouth after my stroke History of removal of Port-a-Cath Placement/removal Schwannoma of cranial nerve Craniotomy Status post cholecystectomy Status post insertion of percutaneous endoscopic gastrostomy (PEG) tube /Removal Family History Other Cancer Diabetes Social History Smoking and tobacco status: never smoked Household members: spouse Marital status: Current occupational status: unemployed Data Anesthesia Cardiac Studies: No Data to Display
--- NOTE | 2022-03-03 06:59 | P.HP_ITS ---
Providers/Chief Complaint Primary Care Provider: Daphnie Franco TEA AND SPICE SUPERVISOR Chief Complaint: Something Stuck in Throat History of Present Illness Walter Cherry is a 56 year old male Was eating meat last night and got it caught in his esophagus. He is unable to swallow his saliva. This is happened to him 1 denies any other symptoms Review of Systems General: Reports: 10 or more systems reviewed and unremarkable except in HPI and below Medications/Allergies Home Medications Medication Instructions Recorded Confirmed Last Taken Type atorvastatin 80 mg tablet 80 mg PO DAILY 10/09/19 03/03/22 Unknown History cholestyramine (with sugar) 4 gram 4 g PO BID 10/09/19 03/03/22 Unknown History powder for susp in a packet fenofibrate micronized 200 mg 200 mg PO DAILY 10/09/19 03/03/22 Unknown History capsule lisinopril 10 mg tablet 10 mg PO DAILY 10/09/19 03/03/22 Unknown History sertraline 100 mg tablet 200 mg PO DAILY 10/09/19 03/03/22 11/23/19 20:00 History mirtazapine 30 mg tablet 30 mg PO BEDTIME 11/13/19 03/03/22 Unknown History naproxen 500 mg tablet (Naprosyn) 500 mg PO BID PRN pain #20 tabs 11/13/19 03/03/22 Unknown Rx omega-3 fatty acids-fish oil 300 1 cap PO DAILY 11/13/19 03/03/22 Unknown History mg-500 mg capsule (Fish Oil) Allergies Allergy/AdvReac Type Severity Reaction Status Date / Time No Known Allergies Allergy Verified 11/13/19 18:18 PFSH Acute PFSH: Medical History (Updated 03/03/22 @ 07:01 by Crispin Lainez DO) Anxiety History of CVA (cerebrovascular accident) Right hemiparesis Hypertension Surgical History History of appendectomy History of arthroscopy of left knee History of facial surgery Nerve surgery on the right side to help me move food out of the right side of my mouth after my stroke History of removal of Port-a-Cath Placement/removal Schwannoma of cranial nerve Craniotomy Status post cholecystectomy Status post insertion of percutaneous endoscopic gastrostomy (PEG) tube /Removal Family History Other Cancer Diabetes Social History Smoking and tobacco status: never smoked Household members: spouse Marital status: Current occupational status: unemployed Vitals/I&O/Wt Last Vital Signs Temp 97.4 F L 03/03/22 06:26 Pulse 87 03/03/22 06:26 Resp 18 03/03/22 06:26 BP 169/100 03/03/22 06:26 Pulse Ox 96 03/03/22 06:26 O2 Del Method 03/03/22 06:31 03/02/22 03/02/22 03/03/22 14:59 22:59 06:59 Intake Total 0 / 0 Balance 0 / 0 Weight last 48 hrs Weight 265 lb Weight 260 lb Physical Exam Narrative: General : Patient is well developed , no acute distress, oriented x3 Head : Normal cephalic, a-traumatic. Ears : Pinnae and external canal are normal. Hearing is normal. Eyes : PERRLA, Sclera and injection are normal. No conjunctival discharge. Nose : Mucous membranes are without erythema. Throat : buccal mucosa is normal, gums are without significant recession or hypertrophy. Lungs : Equal chest rise bilaterally, no use of accessory muscles, trachea is midline. Cor : Rate and rhythm are normal. Abdomen : Soft, ND, NT, no g/r/m Extremities : No edema, no cyanosis or clubbing, dorsalis pedis pulses are present bilaterally, non-tender to palpation of calves. Upper extremities are normal bilaterally. Back : non-tender to palpation, no CVA tenderness. Neuro : CN II - XII intact, Upper and lower extremities have equal and full strength A&P Assessment and plan (1) Food bolus obstruction of intestine: Plan EGD The risks and benefits of the procedure, including bleeding, infection, intestinal perforation requiring surgery, missed lesion, or explained to the patient. He is understanding of the risks and wishes to proceed. I would likely clear the food bolus and send him home Attestations Medical Necessity Statement*: Patient will likely go home Coding Level of Care Code Acute Performance Improvement Analyst for Chg Fwd Diagnoses Food bolus obstruction of intestine K56.699
--- NOTE | 2022-03-03 07:37 | P.PCN_ITS ---
PACU note Narrative: VSS, Good respiratory effort, report to DRUG DISCOVERY INFORMATICS SPECIALIST Exam: awake
--- NOTE | 2022-03-03 07:37 | PM.PACU ---
PACU note Narrative: VSS, Good respiratory effort, report to DRIVE AWAY DRIVER Exam: awake
--- NOTE | 2022-03-03 13:45 | ANE.PACU2 ---
Inpatient post-anesthesia follow up: Airway intact: Yes Vital signs: Temperature 97.4 F Pulse Rate 84 Respiratory Rate 18 Blood Pressure 145/90 Pulse Oximetry 95 Oxygen Delivery Me thod Room Air Oxygen Flow Rate 3 Fraction of Inspir ed Oxygen Hydration adequate: Yes Nausea and vomiting: No Pain level: 1 Mental status: Baseline
== END 2022-03-03 08:22 | disposition home or self-care (01) ==
PROVIDERS: Surgery; Emergency Provider Emergency Medicine; PCP Nurse Practitioner Family
PROC: 0DJ08ZZ Inspection of Upper Intestinal Tract, Via Natural or Artificial Opening Endoscopic (ICD-10-PCS; CPT 43235; principal; 2022-03-03 06:30)
DX: R09.89 Other specified symptoms and signs involving the circulatory and respiratory systems (principal); Z86.73 Personal history of transient ischemic attack (TIA), and cerebral infarction without residual deficits; I10 Essential (primary) hypertension
CPT/HCPCS: 43247; 71046; 96360; 96361; 99284; J0330; J1100; J1610; J2405; J2704; J3010; J3490; J7030

== ENCOUNTER → 2022-03-22 14:16 | Outpatient (BNVA) | payer MEDICARE, SELFPAY | PROVIDERS: PCP Nurse Practitioner Family; Visit Provider Surgery | DX: Z09 Encounter for follow-up examination after completed treatment for conditions other than malignant neoplasm (principal); K56.699 Other intestinal obstruction unspecified as to partial versus complete obstruction | CPT/HCPCS: 99203; 99213 ==